=== PATIENT | female | born 1980 | race Two or more races ===

== ENCOUNTER 2016-11-19 23:50 | Emergency (ER) | payer MEDICAID ==
[2016-11-20] MEDS ORDERED: HYDROCODONE/ACETAMINOPHEN 5/325MG TABLET ONE ×2 (01:33)
--- NOTE | 2016-11-20 07:39 | RAD ---
Exam: 4 view right wrist COMPARISON: None INDICATION: Ground-level fall, wrist pain. FINDINGS: PA, lateral, oblique and scaphoid views of the right wrist were obtained. Overall normal bone mineralization. No apparent soft tissue swelling. Alignment is normal. Small rounded focus of density projects along the triquetrum on the PA view only which is of uncertain but doubtful clinical significance; this is not felt to be related to an acute fracture. No fracture is identified. IMPRESSION: No acute osseous abnormality in the right wrist.
--- NOTE | 2016-11-20 07:41 | RAD ---
Exam: Three-view right elbow COMPARISON: None INDICATION: Ground-level fall, unable to fully extend right elbow. FINDINGS: AP, lateral and oblique views of the right elbow were obtained. Moderate joint effusion is present. There is a nondisplaced fracture of the coronoid process of the ulna, only seen on the lateral view. No additional fractures identified. Alignment is maintained. IMPRESSION: Nondisplaced fracture of the coronoid process of the ulna.
== END 2016-11-20 01:45 | disposition home or self-care (01) ==
LOC: ED 23:50
DX: S52.001A Unspecified fracture of upper end of right ulna, initial encounter for closed fracture (principal); W18.2XXA Fall in (into) shower or empty bathtub, initial encounter; Y93.E1 Activity, personal bathing and showering; Y92.002 Bathroom of unspecified non-institutional (private) residence as the place of occurrence of the external cause
CPT/HCPCS: 73080; 73110; 99283 ×2; A9270 ×2